=== PATIENT | male | born 1995 | race Caucasian/White ===

== ENCOUNTER 2022-02-13 07:14 | Inpatient (IN) | payer BC, OTHER ==
[~2022-02-13] VITALS: Ht 175.3 cm; Wt 63.5 kg
[2022-02-13 10:07] LABS: BASOPHILS ABSOLUTE AUTO 0.05 K/mm3 (0.00-0.23); BASOPHILS PERCENT AUTO 0 % (0-2); EOSINOPHILS ABSOLUTE AUTO 0.09 K/mm3 (0.00-0.68); EOSINOPHILS PERCENT AUTO 1 % (0-6); Hematocrit 46.2 % (37.0-53.0); Hemoglobin 15.1 g/dL (13.5-17.5); IMMATURE GRAN ABSOLUTE AUTO 0.12 K/mm3 (0.00-0.10); IMMATURE GRAN PERCENT AUTO 1 % (0-1); LYMPHOCYTES ABSOLUTE AUTO 1.06 K/mm3 (0.84-5.20); LYMPHOCYTES PERCENT AUTO 6 % (21-46); MONOCYTES ABSOLUTE AUTO 1.02 K/mm3 (0.16-1.47); MONOCYTES PERCENT AUTO 5 % (4-13); Mean Corpuscular HGB 29.8 pg (26.0-34.0); Mean Corpuscular HGB Conc 32.7 g/dL (31.5-36.5); Mean Corpuscular Volume 91 fL (80-100); Mean Platelet Volume 9.7 fL (9.1-12.4); NEUTROPHILS ABSOLUTE AUTO 16.93 K/mm3 (1.96-9.15); NEUTROPHILS PERCENT AUTO 88 % (41-73); Platelet Count 344 K/mm3 (150-400); RDW Coefficient Variation 13.9 % (11.7-14.2); RDW Standard Deviation 46.6 fL (35.1-46.3); Red Blood Cell Count 5.07 M/mm3 (4.30-5.90); White Blood Cell Count 19.27 K/mm3 (4.00-11.30)
[2022-02-13 10:37] LABS: Alanine Aminotransfer (ALT/SGP 28 U/L (12-78); Albumin, Blood 4.6 g/dL (3.4-5.0); Albumin/Globulin Ratio 1.2 (0.8-1.8); Alk Phos 96 U/L (50-136); Anion Gap 5 mmol/L (6-16); Aspartate Aminotrans (AST/SGOT 25 U/L (12-37); Bilirubin, Total 0.5 mg/dL (0.1-1.0); Blood Urea Nitrogen 13 mg/dL (8-24); Bun/Creatinine Ratio 17.6 (12.0-20.0); CO2, Blood 30 mmol/L (21-32); Calcium, Blood 9.7 mg/dL (8.5-10.1); Chloride, Blood 105 mmol/L (98-108); Creatinine, Blood 0.74 mg/dL (0.60-1.20); Globulin, Blood 3.8 g/dL (2.2-4.0); Glomerular Filtration Rate >60 (60-); Glucose, Blood 101 mg/dL (70-99); Sodium, Blood 140 mmol/L (136-145); Total Protein, Blood 8.4 g/dL (6.4-8.2)
--- NOTE | 2022-02-13 17:36 | NUR ---
SHIFT SUMMARY PT A&OX4, VSS/RA. R SIDED CT TO SUCTION; PT REP CP HAS IMPROVED, ALONG WITH SOB. PAIN MANAGED WELL WITH TYLENOL AND ULTRAM. VOIDING/URINAL; STILL NEED TO COLLECT SAMPLE FOR [facility] TOX SCREEN. INDRA PO REG DIET. REPOSITIONS SELF WELL/SITS AT SIDE OF BED INDEPENDENTLY. EDU & ENC I.S.; PT DEMONSTRATED. PLAN FOR CHEST XRAY IN AM. WILL REPORT TO ONCOMING NOC EDWARD.
[2022-02-13 21:49] LABS: U Amphetamine Screen Not Detected; U Barbituate Screen Not Detected; U Benzodiazapine Screen DETECTED; U Buprenorphine Screen Not Detected; U Cannabinoids Screen DETECTED; U Cocaine Screen Not Detected; U Methadone Screen Not Detected; U Methamphetamine Screen Not Detected; U Opiates Screen Not Detected; U Oxycodone Screen Not Detected; U Phencyclidine Screen Not Detected; U Propoxyphene Screen Not Detected
--- NOTE | 2022-02-14 05:31 | NUR ---
CUSTOMER SUPPORT ASSOCIATE SUMMARY NO ACUTE CHANGES THIS SHIFT. PT AAOX4 AND PLEASANT. CHEST TUBE TO RCW SET TO SUCTION. MINIMAL AMOUNTS OF RED DRAINAGE NOTED. NO LEAKS NOTED ON PLEUREVAC. LUNGS SLIGHTLY DIM ON R SIDE COMPARED TO LEFT. PT REPORTS IMPROVEMENT IN BREATHING. MEDICATED FOR PAIN X1 WITH TRAMADOL WITH GOOD RELIEF. ON RA. VSS, WILL CONTINUE TO MONITOR.
[2022-02-14 08:31] LABS: BASOPHILS ABSOLUTE AUTO 0.04 K/mm3 (0.00-0.23); BASOPHILS PERCENT AUTO 0 % (0-2); EOSINOPHILS ABSOLUTE AUTO 0.16 K/mm3 (0.00-0.68); EOSINOPHILS PERCENT AUTO 2 % (0-6); Hematocrit 41.7 % (37.0-53.0); Hemoglobin 13.6 g/dL (13.5-17.5); IMMATURE GRAN ABSOLUTE AUTO 0.02 K/mm3 (0.00-0.10); IMMATURE GRAN PERCENT AUTO 0 % (0-1); LYMPHOCYTES ABSOLUTE AUTO 1.65 K/mm3 (0.84-5.20); LYMPHOCYTES PERCENT AUTO 18 % (21-46); MONOCYTES ABSOLUTE AUTO 0.86 K/mm3 (0.16-1.47); MONOCYTES PERCENT AUTO 9 % (4-13); Mean Corpuscular HGB 29.8 pg (26.0-34.0); Mean Corpuscular HGB Conc 32.6 g/dL (31.5-36.5); Mean Corpuscular Volume 91 fL (80-100); Mean Platelet Volume 9.6 fL (9.1-12.4); NEUTROPHILS ABSOLUTE AUTO 6.41 K/mm3 (1.96-9.15); NEUTROPHILS PERCENT AUTO 70 % (41-73); Platelet Count 248 K/mm3 (150-400); RDW Standard Deviation 47.4 fL (35.1-46.3); Red Blood Cell Count 4.57 M/mm3 (4.30-5.90); White Blood Cell Count 9.14 K/mm3 (4.00-11.30)
[2022-02-14 08:43] LABS: Albumin, Blood 3.9 g/dL (3.4-5.0); Anion Gap 0 mmol/L (6-16); Blood Urea Nitrogen 12 mg/dL (8-24); CO2, Blood 31 mmol/L (21-32); Chloride, Blood 106 mmol/L (98-108); Creatinine, Blood 0.92 mg/dL (0.60-1.20); Glomerular Filtration Rate >60 (60-); Glucose, Blood 93 mg/dL (70-99); Phosphorus, Blood 2.7 mg/dL (2.5-4.9); Potassium, Blood 4.1 mmol/L (3.5-5.5); Sodium, Blood 137 mmol/L (136-145)
--- NOTE | 2022-02-14 15:24 | NUR ---
1310 PT CALLED TO REPORT THERE IS NOW BUBBLING IN CHAMBER C , PT DENIES CHANGE IN HOW HE HE IS BREATHING. NOTIFIED DR MASTERS.
--- NOTE | 2022-02-14 15:31 | NUR ---
1515 PT REPORTS 9/10 PAIN AT CHEST TUBE INSERTION SITE AND UPPER BACK ON RIGHT SIDE GIVEN ULTRAM AND TORADOL
--- NOTE | 2022-02-14 15:34 | NUR ---
1530 PT BENT OVER AT WAIST, CLUTCHING CHEST REPORTS PAIN 10/10 AND REPORTS SOB. BIOX 100% ON ROOM AIR. SPOKE WITH LINDA TOLENTINO RN WHO IS IN OR WITH DR MASTERS AND WILL NOTIFY DR MASTERS OF PTS REPORT OF SOB AND PAIN
--- NOTE | 2022-02-14 15:40 | NUR ---
LUNGS WITH SLIGHTLY DIMINISHED BREATH SOUNDS ON RIGHT SIDE
--- NOTE | 2022-02-14 16:31 | NUR ---
1600 PT WITH FAMILY AT BEDSIDE, REPORTS PAIN IS LESSENED TO 5/10 BUT STILL PRESENT AND IS MAINLY IN HIS BACK, DESCRIBES A SHARP STABBING PAIN. PT NOW ABLE TO LAY IN BED WITH HOB ELEVATED
--- NOTE | 2022-02-14 17:20 | NUR ---
SUMMARY PT REPORTS PAIN TO BACK AND RIGHT UPPER CHEST HAS DECREASED AFTER MEDICATED. AIR LEAK NOTED IN CHAMBER OF WATERSEAL. PT DENIES SOB
--- NOTE | 2022-02-15 00:51 | NUR ---
1251: PT COMFORTABLE SLEEPING AT THIS TIME. RESPIRATION AT 18. CHEST TUBE ON CONT SUCTION, APPEARS TO HAVE SOME MILD AIRLEAK ON CHAMBER C. UNCHANGED SINCE THE BEGINNING OF SHIFT. WILL CONTINUE TO MONITOR PT.
--- NOTE | 2022-02-15 06:18 | NUR ---
SHIFT SUMMARY NO ACUTE CHANGES OVERNIGHT. PT REPORTS MILD PAIN AT THE BEGINNING OF SHIFT. PAIN MANAGED WITH TYLENOL. PT ALSO TOOK MELATONIN TO HELP WITH SLEEP. HE SLEPT GOOD OVERNIGHT. PT DENIES PAIN SINCE THEN, REFUSE ANY PAIN MEDS WELL THIS MORNING. PT STS HE IS FEELING COMFORTABLE. DENIES CHEST PAIN AND SOB. VSS. THORAVENT ON R CHEST WALL STILL INTACT, SUCTIONING CONTINOUS. USE URINAL FOR VOIDING. TOLERATING PO INTAKE. DENIES NAUSEA AND VOMITING. CALL LIGHT WITHIN REACH. WILL PROVIDE REPORT TO ONCOMING NURSE.
--- NOTE | 2022-02-15 07:30 | NUR ---
PATIENT RESTING QUIETLY IN BED, REPORT RECIEVED THAT PATIENT REQUESTS TO SLEEP THIS AM.
--- NOTE | 2022-02-15 13:34 | NUR ---
PATIENT APPEARS TO BE IN MORE RESPIRATORY STRESS AT THE MOMENT. HIS REPSIRATIONS ARE 36/MIN & LABORED. O2 SATS @ 95% ON RA. CHEST XRAY WAS ALREADY ORDERED & JUST OBTAINED. DR MASTERS NOTIFIED & STATES HE WILL BE BY TO SEE PATIENT SHORTLY. NO NEW ORDERS AT THIS TIME.
--- NOTE | 2022-02-15 14:40 | NUR ---
DR MASTERS AT BEDSIDE, REPLACED THORAVENT CHEST TUBE W/ A NEW THORAVENT CHEST TUBE, TO CONT LOW SUCTION.
--- NOTE | 2022-02-15 17:11 | NUR ---
SHIFT SUMMARY A&O X4, VSS ON RA. PT HAD EPISODE OF DIFFICULTY BREATHING & WAS TACHYPNEIC. DR MASTERS REPLACED THORAVENT CHEST TUBE TODAY AT BEDSIDE, REFER TO PREVIOUS NOTE. PT TOLERATED WELL BUT IS STRUGGLING W/ PAIN MANAGEMENT TO HIS BACK. MEDICATED PER EMAR, REPOSITIONING SEEMS TO HELP AT THIS TIME. WILL REPORT TO ONCOMING RN.
--- NOTE | 2022-02-16 03:14 | NUR ---
SHIFT SUMMARY: PT. AOX4, THORAVENT TO R ANTERIOR CHEST WAAL TO CONTINOUS LOW SUCTION. EATING & DRINKING WELL. NOTED NO VOID UP TO THIS TIME SINCE TH EBEGINNING OF THE SHIFT, ASKED PT. IF HE WANTS TO TRY TO PEE, PT. SAID ' NO, I WILL PEE WHEN I WAKE UP". OFFERED TO DO BLADDER SCAN TO CHECK HOW MUCH URINE HE HAS, PT. STRONGLY REFUSED. NO ACUTE CHANGES NOTED, SLEEPING WELL. C/O PAIN MEDICATED PER EMAR.
--- NOTE | 2022-02-16 05:12 | NUR ---
FOLLOWED UP WITH PT. AGAIN SINCE INDUSTRIAL ORGANIZATION MANAGER JUST GOT OUT OF THE ROOM, PT. REFUSED TO URINATE & DO BLADDER SCAN, PT. STATED " I'M OKAY, I PROMISE".
--- NOTE | 2022-02-16 16:39 | NUR ---
SHIFT SUMMARY A&O X4, VSS ON RA. CHEST TUBE REMAINS IN PLACE TO R ANT CHEST TO LOW CONT WALL SUCTION. NO ADDITIONAL DRAINAGE TODAY IN CANISTER, CREPITUS NOTED ON R SIDE RIB/PECTORAL AREA. PT REPORTS MILD PAIN, MEDICATED X1 THIS SHIFT W/ TRAMADOL PER EMAR, REPORTS PAIN TO BE MANAGED. REMAINS IND IN ROOM TO USE URINAL AT BEDSIDE, TOLERATING PO INTAKE WELL, VOIDING WELL, PLEASANT W/STAFF, CALLS APPROPRIATELY. WILL REPORT TO ONCOMING RN.
--- NOTE | 2022-02-17 01:06 | NUR ---
PT. SLEEPING WELL, NO S/S OF RESP./CV DISTRESS NOTED.
--- NOTE | 2022-02-17 01:50 | NUR ---
SHIFT SUMMARY: R CHEST TUBE TO LOW CONTINOUS WALL SUCTION, NO PROBLEMS NOTED, PT. DENIES SOB, STATED " I FEEL FINE". EATING & DRINKING WELL. C/O R CHEST PAIN RELATED TO CHEST TUBE PLACEMENT PER PT., MEDICATED PER EMAR. PT. VOIDING VIA THE URINAL. SLEEPING WELL, NO ACUTE CHANGES NOTED.CLWR, ABLE TO MAKE NEEDS KNOWN.
--- NOTE | 2022-02-17 15:20 | NUR ---
PT RESTING IN BED, DENIES ANY SOB AND PAIN, REPORT GIVEN TO EDWARD PACE.
--- NOTE | 2022-02-17 17:53 | NUR ---
PATIENT SLEEPING, RESP UNLABORED, CT TO LOW SX. PATIENT CALL LIGHT IN REACH.
--- NOTE | 2022-02-18 03:13 | NUR ---
SHIFT SUMMARY: THORAVENT TO R ANTERIOR CHEST TO CONTINOUS LOW SUCTION, NO ISSUES NOTED. LUNGS ARE CLEAR, C/O PAIN MEDICATED PER EMAR. ABLE TO MAKE NEEDS KNOWN, CLWR. NO ACUTE CHANGES NOTED. WILL CONTINUE TO MONITOR.
--- NOTE | 2022-02-19 02:12 | NUR ---
SHIFT SUMMARY: PT. AOX4, COMPLAINTS OF MINIMAL R SHOULDER PAIN, WILL MEDICATE PER EMAR. R ANTERIOR CHEST TUBE TO WATER SEAL, NO PROBLEMS NOTED. EATING, DRINKING & SLEEPING WELL. NO OTHER COMPLAINTS, NO ACUTE CHANGES NOTED, WILL CONTINUE TO MONITOR.
--- NOTE | 2022-02-19 08:05 | NUR ---
CHEST TUBE REMOVED BY DR MASTERS AT THIS TIME. PT TOLERATED WELL. BREATHING EASY & DEEP. DENIES NEEDS & IS EXCITED FOR DC; EXPRESSES WISHES TO D/C [facility]. ASSESSMENT DECLINED. ALERT, ORIENTED. RESP EVEN. ON RA.
--- NOTE | 2022-02-19 09:05 | NUR ---
DISCHARGE DECLINES W/C OUT. AMBULATES OUT WITHOUT DIFF.
== END 2022-02-19 09:07 | disposition home or self-care (01) | DRG 201 ==
LOC: ER 07:14 → MEDS 11:32 → SURS 11:32
PROVIDERS: Family Medicine; Nurse Practitioner Acute Care; Physician Assistant; ADMIT Internal Medicine
PROC: 0W993ZZ Drainage of Right Pleural Cavity, Percutaneous Approach (ICD-10-PCS; principal; 2022-02-13)
DX: J93.11 Primary spontaneous pneumothorax (principal); F17.210 Nicotine dependence, cigarettes, uncomplicated; F12.90 Cannabis use, unspecified, uncomplicated; D72.829 Elevated white blood cell count, unspecified; Z71.6 Tobacco abuse counseling; Z28.21 Immunization not carried out because of patient refusal
CPT/HCPCS: 32551; 36415; 71045; 71046; 80053; 80069; 84145; 85025; 96374; 96375; 99285-25; A9270; J1885; J2060; J3010